=== PATIENT | male | born 1960 | race Caucasian/White ===

== ENCOUNTER 2023-06-26 11:35 | Emergency (ER) | payer BC, SELFPAY ==
[2023-06-26] VITALS (7 sets, daily range): BP systolic 146–171; BP diastolic 99–116; PULSE 69–76; RESP 16; TEMP 36.4; O2SAT 95–99; BMI 25.9
--- NOTE | 2023-06-26 12:02 | CRLHL7_ITS ---
For Patients: As a result of the Century Cures Act, medical imaging exams and procedure reports are released immediately into your electronic medical record. You may view this report before your referring provider. If you have questions, please contact your health care provider. Indication: Clumsiness. Technique: Multiplanar, multisequence MRI of the brain was performed without intravenous contrast. Comparison: None relevant available. Findings: The corpus callosum, pituitary gland and clivus appear intact. Mild degenerative change visualized upper cervical spine. There is no restricted diffusion. No intracranial hemorrhage. The ventricles are proportionate to the cerebral sulci. The 4th ventricle appears midline. The basal cisterns appear patent. No abnormal extra-axial fluid collection identified. Mild parenchymal volume loss. Scattered T2 FLAIR hyperintense foci within the subcortical and periventricular white matter, favored to represent chronic ischemic microvascular disease. There is no intracranial mass, abnormal mass-effect or midline shift identified. Major intracranial vascular flow voids appear grossly intact. Both globes are preserved. Mild to moderate paranasal sinus mucosal disease. Impression: 1. No acute/subacute infarct. 2. Mild chronic ischemic microvascular disease. Dictated by Bean Velez MD @ 06/26/2023 1:33:54 PM (Electronically Signed)
--- NOTE | 2023-06-26 12:17 | ED.GENADULT ---
HPI - General Adult General Date Seen: 06/26/23 Chief complaint: Fall/Minor Trauma Stated complaint: sycope Time Seen by Provider: 06/26/23 11:40 Source: patient Mode of arrival: ambulatory Limitations: no limitations History of Present Illness HPI narrative: Patient is a 63-year-old generally healthy man who comes in after trying to make an appointment clinic and being told to come to the ER. He says he had called saying he has been having trouble with clumsiness and near falls over the past couple of months. He says he will be walking and he will feel as if he just forgets how to walk for 2nd, he will stumble and half to catch himself. This happened several times over the weekend prompting him to call clinic this morning. He has not had any other focal neurologic changes, denies headaches, vomiting, back pain. Does say he has developed some arthritis such as pain with movement of his shoulder and generalized aches and stiffness. He has not had any fevers. He denies any injuries from any of his near falls. He says that he got the impression from the triage nurse that he might have dementia and so he is now concerned about that. He does say that he feels like he more frequently walks into her room and can not remember why he went in the 1st place. He has not had any other memory loss. Related Data Home Medications Medication Instructions Recorded Confirmed coenzyme Q10 100 mg capsule 100 mg PO DAILY 06/26/23 06/26/23 (CoQ-10) famotidine 20 mg tablet (Pepcid) 20 mg PO DAILY 06/26/23 06/26/23 krill oil-hyaluronic cap PO 06/26/23 acid-astaxanthin 353 mg capsule ([facility]) naproxen sodium 220 mg tablet 220 mg PO BID PRN 06/26/23 06/26/23 (Aleve) Allergies Allergy/AdvReac Type Severity Reaction Status Date / Time thimerosal Allergy Severe Verified 06/26/23 11:44 Review of Systems Status of ROS: Reports: 10 or more systems reviewed and unremarkable except as noted in History and below [facility] PFS Social History Smoking Status: Never smoker Do you use any of these nicotine containing products: None Second hand tobacco smoke exposure: No How often do you have a drink containing alcohol: monthly or less AUDIT-C Alcohol total score: 1 Non-prescribed substance use: denies use service: No Exam Narrative: Exam Narrative: Vital signs as noted above. In general, an alert, well-appearing patient. Head: Normocephalic, atraumatic. Eyes: Pupils are equal reactive. Extraocular movements are full. Conjunctivae are normal. ENT: Mucous membranes are moist. Throat is normal. Neck: Supple without lymphadenopathy. Heart: Regular rate and rhythm. No murmur or rub. Lungs: Clear bilaterally. No increased work of breathing, crackles or wheezes. Abdomen: Soft and nontender. No organomegaly. Extremities: Well perfused. No edema. No calf tenderness. Pulses intact. Neurologic: Patient is alert and oriented to person and place. Speech is fluent. Face is symmetric. Moves all extremities equally. Strength is 5 5 in upper and lower extremities, fine motor function is normal. Cerebellar function is intact by finger-nose and heel-brantley testing. Affect: Normal. Skin: Warm and dry. Well perfused. Const: Vital Signs, click to edit/add: Vital Signs - 24 hr 06/26/23 11:44 06/26/23 11:45 06/26/23 11:47 Temperature 97.5 F L Pulse Rate 76 73 Pulse Rate [Pulse Oximeter] 73 Respiratory Rate 16 Blood Pressure 171/99 H Blood Pressure [Ri ght Upper Arm] 171/99 H Pulse Oximetry 98 98 99 Oxygen Delivery Me thod Room Air 06/26/23 12:02 06/26/23 12:15 06/26/23 13:37 Temperature Pulse Rate 72 76 Pulse Rate [Pulse Oximeter] Respiratory Rate Blood Pressure 151/116 H Blood Pressure [Ri ght Upper Arm] Pulse Oximetry 97 97 Oxygen Delivery Me thod 06/26/23 13:39 Temperature Pulse Rate 69 Pulse Rate [Pulse Oximeter] Respiratory Rate Blood Pressure 146/100 H Blood Pressure [Ri ght Upper Arm] Pulse Oximetry 95 Oxygen Delivery Me thod Documenting provider has reviewed patient's vital signs: yes Course Course Hospital Course: Overall exam is unrevealing, he is having intermittent symptoms of some clumsiness. Does have some generalized joint aches and pains. Will run some basic labs, I think it is reasonable to do an MRI just to look for any old strokes or something like MS. Will run a Lyme titer as well. Discussed with him that it certainly possible that testing today will not reveal answer an at that point I would recommend neurologic follow-up. Labs are unremarkable. His CBC shows a normal white blood cell count and hemoglobin of 15.5. Sed rate and CRP are normal. Metabolic panel is normal, blood sugar is 106. LFTs are unremarkable. TSH was 0.96. Lyme panel is pending. His MRI was read by Radiology as follows:Impression: 1. No acute/subacute infarct. 2. Mild chronic ischemic microvascular disease Discussed with him that at this time I do not have a clear explanation for his symptoms but certainly do not find anything acute or worrisome. His blood pressure is mildly elevated here and I have asked him to follow this up with primary care. I would also recommend discussing symptoms with primary care and consideration of a referral to neurology. Vital Signs Vital signs: Initial Vital Signs Pulse Rate 76 06/26/23 11:44 Blood Pressure 171/99 H 06/26/23 11:44 Blood Pressure Mean 123 H 06/26/23 11:44 Pulse Oximetry 98 06/26/23 11:44 Vital Signs Pulse Rate 76 06/26/23 11:44 Blood Pressure 171/99 H 06/26/23 11:44 Pulse Oximetry 98 06/26/23 11:44 Temperature 97.5 F L 06/26/23 11:47 Pulse Rate 69 06/26/23 13:39 Respiratory Rate 16 06/26/23 11:47 Blood Pressure 146/100 H 06/26/23 13:39 Pulse Oximetry 95 06/26/23 13:39 Oxygen Delivery Method Room Air 06/26/23 11:47 Medical Decision Making Lab Data Labs: Lab Results 06/26/23 Range/Units 12:15 WBC 8.12 (4.50-11.00) K/uL RBC 5.06 (4.30-5.90) m/uL Hgb 15.5 (13.5-17.5) gm/dL Hct 45.5 (37.0-53.0) % MCV 90 (80-100) fL MCH 31 (26-34) pg MCHC 34 (32-36) gm/dL RDW Coeff of Evelyn 12.2 (11.5-15.5) % Plt Count 229 (140-440) K/uL Neut % (Auto) 73.3 H (42.0-72.0) % Lymph % (Auto) 18.8 L (20-44) % [place] % (Auto) 5.5 (0.0-11.0) % Eos % (Auto) 1.6 (0.0-7.0) % Baso % (Auto) 0.6 (0.0-3.0) % Neut # (Auto) 6.00 (1.7-7.0) K/uL Lymph # (Auto) 1.50 (0.90-2.90) K/uL [place] # (Auto) 0.40 (0.00-0.90) K/UL Eos # (Auto) 0.13 (0.00-0.50) K/uL Baso # (Auto) 0.05 (0.00-0.30) K/uL Abs Immat Gran (auto) 0.02 (0.00-0.30) K/uL Imm/Tot Granulo (auto) 0.2 % ESR < 2 L (2-15) mm/hr Sodium 139 (135-149) mmol/L Potassium 3.9 (3.6-5.1) mmol/L Chloride 107 (96-114) mmol/L Carbon Dioxide 24 (20-32) mmol/L BUN 18 (7-30) mg/dL Creatinine 0.9 (0.5-1.5) mg/dL Estimated Creat Clear 91.54 Estimated GFR 97 ml/min Glucose 106 (60-115) mg/dL Calcium 9.1 (8.4-10.6) mg/dL Magnesium 2.0 (1.5-2.6) mg/dL Total Bilirubin 0.8 (0.1-1.5) mg/dL Direct Bilirubin 0.1 (0.0-0.5) mg/dL AST 33 (12-35) U/L ALT 32 (4-50) U/L Alkaline Phosphatase 46 (40-150) U/L C-Reactive Protein < 0.5 L (0.5-1.0) mg/dL Total Protein 7.0 (6.0-8.3) g/dL Albumin 4.3 (3.3-5.0) g/dL TSH 0.959 (0.270-4.200) uIU/mL Discharge Plan Discharge Clinical Impression: Clumsiness Patient Disposition: Home, Self-Care Condition: Stable Additional Instructions: Your workup today is unrevealing. Your blood pressure is slightly high and the should be followed up with your primary clinic. Your MRI does not show any acute findings, you have some evidence of small-vessel ischemic changes which is normal for age. This is unlikely related to your symptoms. I would recommend discussing possible Neurology follow-up with your primary care doctor. I sent a Lyme titer and thyroid test and these are pending, we will call if anything needs to be addressed there. Prescriptions: No Action naproxen sodium [Aleve] 220 mg tablet 220 mg PO BID PRN famotidine [Pepcid] 20 mg tablet 20 mg PO DAILY [facility] 353 mg capsule PO coenzyme Q10 [CoQ-10] 100 mg capsule 100 mg PO DAILY Stand Alone Forms: MyHealth Info Instructions
[2023-06-26 12:32] LABS: Basophils Absolute Auto 0.05 K/uL (0.00-0.30); Basophils Percent Auto 0.6 % (0.0-3.0); Eosinophils Absolute Auto 0.13 K/uL (0.00-0.50); Eosinophils Percent Auto 1.6 % (0.0-7.0); Hematocrit 45.5 % (37.0-53.0); Hemoglobin* 15.5 gm/dL (13.5-17.5); Immature Granulocytes Abs Auto 0.02 K/uL (0.00-0.30); Immature Granulocytes Pct Auto 0.2 %; Lymphocytes Percent Auto 18.8 % (20-44); Mean Corpuscular HGB Conc 34 gm/dL (32-36); Mean Corpuscular Hemoglobin 31 pg (26-34); Mean Corpuscular Volume 90 fL (80-100); Monocytes Percent Auto 5.5 % (0.0-11.0); Neutrophils Percent Auto 73.3 % (42.0-72.0); Platelet Count* 229 K/uL (140-440); RDW Coefficient of Variation % 12.2 % (11.5-15.5); Red Blood Count 5.06 m/uL (4.30-5.90); White Blood Count* 8.12 K/uL (4.50-11.00)
[2023-06-26 12:34] LABS: Slide Review Reflex No
[2023-06-26 12:42] LABS: Albumin* 4.3 g/dL (3.3-5.0); Chloride* 107 mmol/L (96-114)
[2023-06-26 12:43] LABS: Potassium* 3.9 mmol/L (3.6-5.1); Sodium* 139 mmol/L (135-149)
[2023-06-26 12:45] LABS: Alkaline Phosphatase* 46 U/L (40-150); Aspartate Amino Transferase* 33 U/L (12-35); Bilirubin Direct* 0.1 mg/dL (0.0-0.5); Bilirubin Total* 0.8 mg/dL (0.1-1.5); Blood Urea Nitrogen* 18 mg/dL (7-30); Carbon Dioxide* 24 mmol/L (20-32); Creatinine* 0.9 mg/dL (0.5-1.5); Est. Creatinine Clearance* 91.54; Estimated Glomerular Filt Rate 97 ml/min
[2023-06-26 12:46] LABS: Alanine Aminotransferase* 32 U/L (4-50); Calcium* 9.1 mg/dL (8.4-10.6); Glucose* 106 mg/dL (60-115)
[2023-06-26 12:49] LABS: C Reactive Protein* < 0.5 mg/dL (0.5-1.0)
[2023-06-26 13:23] LABS: Erythrocyte SedimentationRate* < 2 mm/hr (2-15)
[2023-06-26 14:56] LABS: TSH With Reflex to FT4* 0.959 uIU/mL (0.270-4.200)
[2023-06-27 16:18] LABS: Lyme ELISA Reflex 0.35 IV (<=0.90)
== END 2023-06-26 13:51 | disposition home or self-care (01) ==
PROVIDERS: Emergency Provider Emergency Medicine; PCP Family Medicine
DX: R27.8 Other lack of coordination (principal)
CPT/HCPCS: 36415; 70551; 80048; 80076; 83735; 84443; 85025; 85651; 86140; 86618; 93005; 99284

== ENCOUNTER 2024-06-05 10:00 | Outpatient (RCR) | payer OTHER, SELFPAY | END 2024-10-03 23:59 | disposition home or self-care (01) | PROVIDERS: PCP Family Medicine; Visit Provider Student in an Organized Health Care Education/Training Program | DX: S39.012A Strain of muscle, fascia and tendon of lower back, initial encounter (principal); Z51.89 Encounter for other specified aftercare | CPT/HCPCS: 97110; 97140; 97162 ==